=== PATIENT | female | born 1990 | race Two or more races ===

== ENCOUNTER 2016-08-07 15:38 | Outpatient (CLI) | payer MEDICAID | END 2016-08-07 15:39 | disposition home or self-care (01) | DX: Z11.3 Encounter for screening for infections with a predominantly sexual mode of transmission (principal) ==

== ENCOUNTER 2016-10-27 06:16 | Emergency (ER) | payer MEDICAID ==
[2016-10-27] MEDS ORDERED: HYDROmorphone 1 MG/ML SYRINGE IVP STA (06:33)
[2016-10-27] MEDS ORDERED: ONDANSETRON 4 MG/2 ML VIAL IVP STA (06:33)
[2016-10-27] MEDS ORDERED: SODIUM CHLORIDE 0.9% 1,000 ML IV ONE (06:33)
[2016-10-27] MEDS ORDERED: HYDROmorphone 1 MG/ML SYRINGE ONE (06:37)
[2016-10-27] MEDS ORDERED: ONDANSETRON 4 MG/2 ML VIAL ONE (06:37)
== END 2016-10-27 07:37 | disposition home or self-care (01) ==
DX: K52.9 Noninfective gastroenteritis and colitis, unspecified (principal); K21.9 Gastro-esophageal reflux disease without esophagitis; G40.909 Epilepsy, unspecified, not intractable, without status epilepticus
CPT/HCPCS: 36415; 80053; 81003; 81025; 83690; 85025; 96374; 96375; 99283; 99284; J1170

== ENCOUNTER 2016-11-19 19:33 | Outpatient (CLI) | payer MEDICAID ==
--- NOTE | 2016-11-20 14:03 | Ultrasound Report ---
ABDOMINAL ULTRASOUND COMPLETE: 11/19/2016 CLINICAL HISTORY: History of gallbladder polyp. TECHNIQUE: Real-time scanning was performed with telephone sales representative static images obtained. FINDINGS: The liver shows a mildly coarsened parenchymal pattern. This is a nonspecific finding. Thi s can be one related to cirrhosis or hepatitis. Recommend clinical correlation. No obvious masses are detected in the liver. The liver length is within normal limits measuring 14.6 cm. Normal hepatopeta l flow is seen in the portal vein. The gallbladder demonstrates a small polyp within it. This gallbladder polyp once again measures 0.55 cm. It is unchanged in size as compared to preceding exam dated 08/07/2009. This lack of change most likely indicates this is of benign etiology. No calculi are noted. No gallbladder wall thickening is seen. The common bile duct measures 4 mm. The pancreas is obscured by bowel gas and, therefore, cannot accurately comment about it. The right kidney measures 11.7 cm. There is a question of one or two small calculi in the right kidne y in association with the calices measuring a few millimeters in diameter. No right pyelocaliceal sys tem distention is seen. The left kidney measures 11 cm. No pyelocaliceal system distention or mass is noted. The spleen measures 11.6 cm. It is within normal limits. The abdominal aorta is within normal limits having diameters of 1.8 cm by 1.3 cm. The inferior vena c tom is seen in the subhepatic portion and shows no significant abnormality. IMPRESSION: 1. AN 0.55 CM POLYP IS NOTED ATTACHED TO THE POSTERIOR WALL OF THE GALLBLADDER. IT IS UNCHANGED IN SI ZE SINCE 08/07/2009 AND, THEREFORE OF BENIGN ETIOLOGY. 2. THE LIVER ONCE AGAIN SHOWS A MILDLY COARSENED PARENCHYMAL PATTERN WITHOUT ENLARGEMENT. THE FINDING IS NONSPECIFIC. IT MAY REPRESENT SUBTLE SIGN OF CIRRHOSIS OR HEPATITIS. RECOMMEND CLINICAL CORRELATI ON. 3. EQUIVOCAL FINDING IS NOTED IN REGARD TO ONE TO TWO SMALL NONOBSTRUCTING CALCULI WITHIN THE RIGHT K JOSHNEY. JOB #: [id number] EXT JOB #:[id number]
== END 2016-11-19 19:34 | disposition home or self-care (01) ==
LOC: DI 19:33
PROVIDERS: ATTEND Physician Assistant
DX: K82.4 Cholesterolosis of gallbladder (principal)
CPT/HCPCS: 76700

== ENCOUNTER 2016-11-25 13:16 | Outpatient (CLI) | payer MEDICAID ==
[2016-11-25 19:10] LABS: ALBUMIN/GLOBULIN RATIO 1.7 (1.0-2.2); BILIRUBIN,TOTAL 0.5 mg/dL (0.2-1.0); CALCIUM 8.9 mg/dL (8.5-10.3); CREATININE 0.6 mg/dL (0.4-1.0); POTASSIUM 4.1 mmol/L (3.5-5.0); TOTAL PROTEIN 7.3 g/dL (6.7-8.2)
== END 2016-11-25 13:17 | disposition home or self-care (01) ==
LOC: LAB.N 13:16
PROVIDERS: ATTEND Physician Assistant
DX: R94.5 Abnormal results of liver function studies (principal)
CPT/HCPCS: 36415; 80053; 81599; 86317; 86803

== ENCOUNTER 2016-12-03 15:52 | Emergency (ER) | payer MEDICAID ==
[2016-12-03 17:21] LABS: BILIRUBIN,URINE NEGATIVE (NEGATIVE)
[2016-12-03 17:23] LABS: HCG UR QUAL NEGATIVE
[2016-12-03 17:24] LABS: UA CHARGE (STRIP ONLY) YES; UR CULTURE IF IND NOT INDICATED
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
[2016-12-03] MEDS ORDERED: CHERRY SYRUP 10 ML UDC PO ONE (19:33)
[2016-12-03] MEDS ORDERED: HYDROcod/ACETAM 5/325 MG TABLET ONE (19:33)
[2016-12-03] MEDS ORDERED: DEXAMETHASONE 10 MG/ML VIAL ONE (19:34)
[2016-12-03] MEDS: DEXAMETHASONE 10 MG/ML VIAL PO STA (19:37)
[2016-12-03] MEDS: HYDROcod/ACETAM 5/325 MG TABLET PO STA (19:40)
[2016-12-03] MEDS ORDERED: HYDROmorphone 2 MG TABLET ONE (19:45)
[2016-12-03] MEDS: HYDROmorphone 2 MG TABLET PO STA (19:47)
--- NOTE | 2016-12-03 20:00 | CT Preliminary Report ---
Exam: CT Head W/O IMPRESSION: Focal area of encephalomalacia at the left posterior lateral frontal lobe with adjacent c raniotomy, unchanged. No acute findings. [facility] SITE ID: [id number]
--- NOTE | 2016-12-03 20:02 | CT Report ---
EXAM: CT HEAD EXAM DATE: 12/03/2016 07:43 PM. CLINICAL HISTORY: Headache for 1-2 weeks. COMPARISON: Head CT 06/04/2012. TECHNIQUE: Multiaxial CT images were obtained from the foramen magnum to the vertex. IV contrast: Non e. Reformats: Coronal. In accordance with CT protocol optimization, one or more of the following dose reduction techniques w ere utilized for this exam: automated exposure control, adjustment of mA and/or KV based on patient s ize, or use of iterative reconstructive technique. FINDINGS: Parenchyma: No intraparenchymal hemorrhage. Focal area of encephalomalacia at the left posterior late ral frontal lobe, unchanged. Adjacent left lateral craniotomy, unchanged. No evidence of mass effect, midline shift, or CT findings of infarction. Zhao-white differentiation is distinct. Extraaxial Spaces: Normal for age. No subdural or epidural collections identified. Ventricles: Normal in size and position. Sinuses: Imaged paranasal sinuses, orbits, and mastoids show no significant abnormality. Bones: No acute findings. See above. IMPRESSION: Focal area of encephalomalacia at the left posterior lateral frontal lobe with adjacent c raniotomy, unchanged. No acute findings. [facility] Referring Provider Line: [phone] SITE ID: [id number]
[2016-12-03 20:12] VITALS: BP 114/68
== END 2016-12-03 20:52 | disposition home or self-care (01) ==
LOC: ED 15:52
DX: R51 Headache (principal); G93.89 Other specified disorders of brain; K21.9 Gastro-esophageal reflux disease without esophagitis; G40.909 Epilepsy, unspecified, not intractable, without status epilepticus
CPT/HCPCS: 70450; 81003; 81025; 99283; 99284; A9270; 81001; 87086

== ENCOUNTER 2017-03-27 13:52 | Emergency (ER) | payer OTHER, MEDICAID ==
[2017-03-27] MEDS ORDERED: ONDANSETRON ODT 4 MG TABLET TL STA (14:14)
[2017-03-27] MEDS ORDERED: ONDANSETRON ODT 4 MG TABLET ONE (14:22)
[2017-03-27 14:53] LABS: BASOPHILS % (AUTO) 0.5 %; EOSINOPHILS % (AUTO) 0.5 %; HCT - HEMATOCRIT 44.1 % (37.0-47.0); LYMPHOCYTES % (AUTO) 37.6 %; MEAN CORPUSCULAR HEMOGLOBIN 31.7 pg (27.0-31.0); MEAN CORPUSCULAR HGB CONC 34.1 g/dL (32.0-36.0); MEAN PLATELET VOLUME 8.3 fL (7.9-10.8); MONOCYTES # (AUTO) 0.4 10^3/uL (0.0-1.0); MONOCYTES % (AUTO) 6.9 %; NEUTROPHILS # (AUTO) 2.8 10^3/uL (1.5-6.6); NEUTROPHILS % (AUTO) 54.5 %; RED BLOOD COUNT 4.74 10^6/uL (4.20-5.40); RED CELL DISTRIBUTION WIDTH 12.5 % (12.0-15.0); UNCORRECTED WHITE BLOOD COUNT 5.2 x10^3/uL; WHITE BLOOD COUNT 5.2 x10^3/uL (4.8-10.8)
[2017-03-27 15:00] LABS: ALBUMIN/GLOBULIN RATIO 1.5 (1.0-2.2); BILIRUBIN,TOTAL 0.8 mg/dL (0.2-1.0); BUN - BLOOD UREA NITROGEN 6 mg/dL (6-20); CALCIUM 9.1 mg/dL (8.5-10.3); CARBON DIOXIDE - CO2 25 mmol/L (21-32); CHLORIDE 104 mmol/L (101-111); CREATININE 0.7 mg/dL (0.4-1.0); GFR - MDRD 99 (>89); GLUCOSE 98 mg/dL (70-100); LIPASE 25 U/L (22-51); POTASSIUM 3.6 mmol/L (3.5-5.0); SALICYLATE < 6.0 mg/dL; SODIUM 141 mmol/L (135-145)
[2017-03-27 15:01] LABS: ACETAMINOPHEN < 10 ug/mL (10-30)
[2017-03-27 15:16] LABS: BILIRUBIN,URINE NEGATIVE (NEGATIVE); HCG UR QUAL NEGATIVE; UA CHARGE (STRIP ONLY) YES; UR CULTURE IF IND NOT INDICATED
--- NOTE | 2017-03-27 15:33 | ED Physician Documentation ---
History of Present Illness - Stated complaint Stated Complaint: LOSS OF APPETITE - Chief complaint Chief Complaint: General - History obtained from History obtained from: Patient - History of Present Illness Timing: How many weeks ago (2) Pain level max: 0 Pain level now: 0 - Additonal information Additional information: Patient is a 27-year-old female who presents to the emergency department with worsening depression for the past 2-3 weeks. States that she found out that her was cheating on her and they are now going through divorce. She has a counselor that she sees, but does not feel like it is helping. States she has had difficulty eating and has been vomiting over the past few weeks. Did go out with her friends last night and had a few drinks. States she did not feel like hanging out with her friends. Therefore she went home early. States that the vomiting is better if she just does not eat. It is worse with eating. Does have a history of depression and anxiety. Review of Systems Constitutional: denies: Fever, Chills Ears: denies: Ear pain Nose: denies: Rhinorrhea / runny nose, Congestion Throat: denies: Sore throat Cardiac: denies: Chest pain / pressure Respiratory: denies: Cough GI: reports: Nausea, Vomiting. denies: Abdominal Pain, Diarrhea : reports: Control (depo). denies: Dysuria, Now EGA Skin: denies: Rash Musculoskeletal: denies: Neck pain, Back pain Neurologic: denies: Focal weakness, Numbness Psychiatric: reports: Depressed. 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 Neuro: Other HEENT: Other - Present Medications Home Medications: Ambulatory Orders Medication Instructions Recorded Confirmed Levetiracetam [Keppra] 1,500 mg PO BID 07/07/13 07/07/13 Lorazepam [Ativan] 1 mg PO TID PRN #12 tablet 07/07/13 Levothyroxine Sodium [Synthroid] 0 mcg PO 07/30/13 07/30/13 Omeprazole 20 mg PO DAILY 03/27/17 03/27/17 Ondansetron Odt [Zofran] 4 mg TL Q6H PRN #10 tablet 03/27/17 - Allergies Allergies/Adverse Reactions: Allergies Allergy/AdvReac Type Severity Reaction Status Date / Time codeine Allergy Respiratory Verified 10/27/16 06:21 hydrocodone Allergy Rash Verified 12/03/16 19:38 oxycodone Allergy Rash Verified 12/03/16 19:38 phenytoin sodium * Allergy Rash Verified 10/27/16 06:21 [From Dilantin] phenytoin sodium extended * Allergy Rash Verified 10/27/16 06:21 [From Dilantin] - Social History Does the pt smoke?: Yes Smoking Status: Current every day smoker Does the pt drink ETOH?: Yes Does the pt have substance abuse?: No - Immunizations Immunizations are current?: No Immunizations: TDAP >10years/unknown - POLST Patient has POLST: No PD ED PE NORMAL - Vitals Vital signs reviewed: Yes - General General: Alert and oriented X 3, No acute distress, Well developed/nourished - HEENT HEENT: PERRL, Moist mucous membranes - Neck Neck: Supple, no meningeal sign - Cardiac Cardiac: RRR, Strong equal pulses - Respiratory Respiratory: No respiratory distress, Clear bilaterally - Abdomen Abdomen: Soft, Non tender, Non distended - Derm Derm: Warm and dry, No rash - Neuro Neuro: Alert and oriented X 3 - Psych Psych: Normal mood, Normal affect Results - Vitals Vitals: Vital Signs - 24 hr 03/27/17 03/27/17 13:55 15:39 Temperature 36.3 C L Heart Rate 87 68 Respiratory 16 16 Rate Blood Pressure 113/75 122/77 O2 Saturation 97 99 Oxygen O2 Source Room air - Labs Labs: Laboratory Tests 03/27/17 03/27/17 03/27/17 14:33 14:33 15:00 WBC 5.2 RBC 4.74 Hgb 15.0 Hct 44.1 MCV 93.0 MCH 31.7 H MCHC 34.1 RDW 12.5 Plt Count 201 MPV 8.3 Neut # 2.8 Lymph # 2.0 [place] # 0.4 Eos # 0.0 Baso # 0.0 Absolute Nucleated RBC 0.00 Nucleated RBC % 0.0 Sodium 141 Potassium 3.6 Chloride 104 Carbon Dioxide 25 Anion Gap 12.0 BUN 6 Creatinine 0.7 Estimated GFR (MDRD) 99 Glucose 98 Calcium 9.1 Total Bilirubin 0.8 AST 15 ALT 12 Alkaline Phosphatase 52 Total Protein 8.0 Albumin 4.8 Globulin 3.2 Albumin/Globulin Ratio 1.5 Lipase 25 Urine Color Urine Clarity Urine pH Ur Specific [place] Urine Protein Urine Glucose (UA) Urine Ketones Urine Occult Blood Urine Nitrite Urine Bilirubin Urine Urobilinogen Ur Leukocyte Esterase Ur Microscopic Review Urine Culture Comments Urine HCG, Qual Salicylates < 6.0 Urine Opiates Screen NEGATIVE Ur Oxycodone Screen NEGATIVE Urine Methadone Screen NEGATIVE Ur Propoxyphene Screen NEGATIVE Acetaminophen < 10 L Ur Barbiturates Screen NEGATIVE Ur Tricyclics Screen NEGATIVE Ur Phencyclidine Scrn NEGATIVE Ur Amphetamine Screen NEGATIVE U Methamphetamines Scrn NEGATIVE U Benzodiazepines Scrn NEGATIVE Urine Cocaine Screen NEGATIVE U Cannabinoids Screen POSITIVE H Ethyl Alcohol < 5.0 03/27/17 15:00 WBC RBC Hgb Hct MCV MCH MCHC RDW Plt Count MPV Neut # Lymph # [place] # Eos # Baso # Absolute Nucleated RBC Nucleated RBC % Sodium Potassium Chloride Carbon Dioxide Anion Gap BUN Creatinine Estimated GFR (MDRD) Glucose Calcium Total Bilirubin AST ALT Alkaline Phosphatase Total Protein Albumin Globulin Albumin/Globulin Ratio Lipase Urine Color DARK YELLOW Urine Clarity CLEAR Urine pH 6.0 Ur Specific [place] 1.025 Urine Protein NEGATIVE Urine Glucose (UA) NEGATIVE Urine Ketones NEGATIVE Urine Occult Blood NEGATIVE Urine Nitrite NEGATIVE Urine Bilirubin NEGATIVE Urine Urobilinogen 0.2 (NORMAL) Ur Leukocyte Esterase NEGATIVE Ur Microscopic Review NOT INDICATED Urine Culture Comments NOT INDICATED Urine HCG, Qual NEGATIVE Salicylates Urine Opiates Screen Ur Oxycodone Screen Urine Methadone Screen Ur Propoxyphene Screen Acetaminophen Ur Barbiturates Screen Ur Tricyclics Screen Ur Phencyclidine Scrn Ur Amphetamine Screen U Methamphetamines Scrn U Benzodiazepines Scrn Urine Cocaine Screen U Cannabinoids Screen Ethyl Alcohol PD MEDICAL DECISION MAKING - ED course Complexity details: reviewed results, re-evaluated patient, considered differential, d/w patient, d/w economic consultant ED course: Patient presents to the emergency department with vomiting for the past several weeks, accompanied by increasing life stress. Vomiting resolved with Zofran. No acute laboratory issues. Social work was consulted and evaluated the patient and she was connected with more resources for home. Does currently see a [employer] counselor as well as [facility]. She denies any suicidal ideation or homicidal ideation. No hallucinations. Patient counseled regarding signs and symptoms for which I believe and urgent re-evaluation would be necessary. Patient with good understanding of and agreement to plan and is comfortable going home at this time This document was made in part using voice recognition software. While efforts are made to proofread this document, sound alike and grammatical errors may occur. Departure - Departure Disposition: 01 Home, Self Care Clinical Impression: Vomiting Qualifiers: Vomiting type: unspecified Nausea presence: with nausea Depression Qualifiers: Depression Type: unspecified Qualified Code(s): F32.9 - Major depressive disorder, single episode, unspecified Condition: Good Instructions: ED Depression, ED Nausea Vomiting Follow-Up: AMARA GUTHRIE MD [Primary Care Provider] - Within 3 Days Prescriptions: Ondansetron Odt [Zofran] 4 mg TL Q6H PRN #10 tablet PRN Reason: Nausea / Vomiting Comments: Follow up as instructed by Elena faria. Return if you worsen. Discharge Date/Time: 03/27/17 15:39
[2017-03-27 15:43] VITALS: BP 122/77
== END 2017-03-27 15:39 | disposition home or self-care (01) ==
LOC: ED 13:52
DX: R11.2 Nausea with vomiting, unspecified (principal); F32.9 Major depressive disorder, single episode, unspecified; F17.200 Nicotine dependence, unspecified, uncomplicated
CPT/HCPCS: 36415; 80053; 80306; 80307; 80320; 80329; 81003; 81025; 83690; 85025; 99283; Q0162; 81001; 87086

== ENCOUNTER 2017-10-08 08:00 | Outpatient (CLI) | payer OTHER, MEDICAID ==
[2017-10-08 19:25] LABS: THYROID STIMULATING HORMONE 1.87 uIU/mL (0.34-5.60)
[2017-10-08 19:29] LABS: FREE T4 (FREE THYROXINE) 1.27 ng/dL (0.58-1.64)
== END 2017-10-08 08:01 | disposition home or self-care (01) ==
LOC: LAB.N 08:00
PROVIDERS: ATTEND Internal Medicine Endocrinology, Diabetes & Metabolism
DX: E89.0 Postprocedural hypothyroidism (principal)
CPT/HCPCS: 36415; 84439; 84443

== ENCOUNTER 2018-01-30 19:15 | Emergency (ER) | payer OTHER, MEDICAID ==
[2018-01-30 19:24] VITALS: BP 127/87
[2018-01-30] MEDS ORDERED: HYDROcod/ACET 5/325 Prepack 4 PO STA (19:50)
[2018-01-30] MEDS ORDERED: BACITRACIN OINT TOP STA (19:50)
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
[2018-01-30] MEDS ORDERED: traMADol 50 MG TABLET PO STA (19:53)
[2018-01-30] MEDS ORDERED: TETANUS/DIPHTHERIA/PERTUSSIS 0.5 ML SYRINGE IM ONE (19:57)
== END 2018-01-30 20:27 | disposition home or self-care (01) ==
LOC: ED 19:15
DX: T24.202A Burn of second degree of unspecified site of left lower limb, except ankle and foot, initial encounter (principal); T31.0 Burns involving less than 10% of body surface; F17.200 Nicotine dependence, unspecified, uncomplicated; R03.0 Elevated blood-pressure reading, without diagnosis of hypertension; X13.1XXA Other contact with steam and other hot vapors, initial encounter; Y93.E4 Activity, ironing; Y92.009 Unspecified place in unspecified non-institutional (private) residence as the place of occurrence of the external cause
CPT/HCPCS: 16020; 90471; 90715; 99281; 99283; A9270

== ENCOUNTER 2018-02-11 10:21 | Outpatient (CLI) | payer OTHER, MEDICAID ==
[2018-02-11 12:49] LABS: BASOPHILS % (AUTO) 0.2 %; EOSINOPHILS # (AUTO) 0.1 10^3/uL (0.0-0.7); EOSINOPHILS % (AUTO) 1.2 %; LYMPHOCYTES # (AUTO) 1.7 10^3/uL (1.5-3.5); LYMPHOCYTES % (AUTO) 31.8 %; MEAN CORPUSCULAR HEMOGLOBIN 32.4 pg (27.0-31.0); MEAN CORPUSCULAR HGB CONC 34.4 g/dL (32.0-36.0); MEAN PLATELET VOLUME 8.7 fL (7.9-10.8); MONOCYTES # (AUTO) 0.4 10^3/uL (0.0-1.0); MONOCYTES % (AUTO) 7.1 %; NEUTROPHILS # (AUTO) 3.1 10^3/uL (1.5-6.6); NEUTROPHILS % (AUTO) 59.7 %; PLT - PLATELET COUNT 193 10^3/uL (130-450); RED BLOOD COUNT 4.31 10^6/uL (4.20-5.40); RED CELL DISTRIBUTION WIDTH 12.4 % (12.0-15.0); WHITE BLOOD COUNT 5.3 x10^3/uL (4.8-10.8)
[2018-02-11 12:58] LABS: ALBUMIN 4.8 g/dL (3.2-5.5); ALBUMIN/GLOBULIN RATIO 1.5 (1.0-2.2); ALKALINE PHOSPHATASE 46 IU/L (42-121); ALT ALANINE AMINOTRANSFERASE 12 IU/L (10-60); AST ASPARTATE AMINOTRANSFERASE 16 IU/L (10-42); BILIRUBIN,TOTAL 0.5 mg/dL (0.2-1.0); BUN - BLOOD UREA NITROGEN 12 mg/dL (6-20); CALCIUM 8.7 mg/dL (8.5-10.3); CARBON DIOXIDE - CO2 25 mmol/L (21-32); CHLORIDE 105 mmol/L (101-111); CHOL/HDL RATIO 3.9 (<4.4); CHOLESTEROL 185 mg/dL; CREATININE 0.7 mg/dL (0.4-1.0); GFR - MDRD 99 (>89); GLUCOSE 89 mg/dL (70-100); HDL CHOLESTEROL 48 mg/dL; LDL CHOLESTEROL,CALCULATED 118 mg/dL; LDL/HDL RATIO 2.5 (<4.4); SODIUM 137 mmol/L (135-145); TOTAL PROTEIN 7.9 g/dL (6.7-8.2); VLDL CHOLESTEROL 19 mg/dL
[2018-02-11 13:02] LABS: HB2 TOTAL 14.8 g/dL; HEMOGLOBIN A1C 0.42 g/dL; HEMOGLOBIN A1C % 4.7 % (4.6-6.2)
== END 2018-02-11 10:22 | disposition home or self-care (01) ==
LOC: LAB.N 10:21
PROVIDERS: ATTEND Nurse Practitioner
DX: E11.9 Type 2 diabetes mellitus without complications (principal)
CPT/HCPCS: 36415; 80053; 80061; 82043; 83036; 83721; 84443; 85025

== ENCOUNTER 2018-02-11 11:53 | Outpatient (CLI) | payer OTHER, MEDICAID ==
--- NOTE | 2018-02-11 13:09 | XRAY Report ---
Procedure Date: 02/11/2018 Accession Number: [id number] / [id number] Procedure: XRN - Cervical Spine 2 View CPT Code: FULL RESULT: EXAM: CERVICAL SPINE RADIOGRAPHY EXAM DATE: 02/11/2018 12:25 PM. CLINICAL HISTORY: Pain. COMPARISONS: None. TECHNIQUE: 3 views. FINDINGS: Alignment: Normal. No spondylolisthesis or scoliosis. Bones: The cervical vertebral bodies and posterior elements are well visualized from the skull base through C7-T1. No fractures or bone lesions. Disks: Normal. Disk heights are maintained. Facets: No degenerative disease. Soft Tissues: Surgical clips are seen projecting over the left neck. No prevertebral soft tissue swelling. The visualized lung apices are clear. IMPRESSION: Normal cervical spine radiography. [facility]
== END 2018-02-11 11:54 | disposition home or self-care (01) ==
LOC: DI.N 11:53
PROVIDERS: ATTEND Nurse Practitioner
DX: M54.2 Cervicalgia (principal); E11.9 Type 2 diabetes mellitus without complications
CPT/HCPCS: 36415; 72040; 80053; 80061; 82043; 83036; 83721; 84443; 85025

== ENCOUNTER 2018-04-18 14:23 | Outpatient (CLI) | payer OTHER, MEDICAID | END 2018-04-18 14:24 | disposition home or self-care (01) | LOC: LAB.N 14:23 | PROVIDERS: ATTEND Nurse Practitioner | DX: E03.9 Hypothyroidism, unspecified (principal) | CPT/HCPCS: 36415; 84443 ==

== ENCOUNTER 2018-05-13 16:06 | Outpatient (CLI) | payer OTHER, MEDICAID ==
--- NOTE | 2018-05-13 16:48 | XRAY Report ---
Reason: HEBERDENS NODES W/ARTHROPATHY,RT Procedure Date: 05/13/2018 Accession Number: [id number] / [id number] Procedure: XRN - Finger(s) RT CPT Code: FULL RESULT: EXAM: RIGHT THIRD DIGIT RADIOGRAPHY EXAM DATE: 05/13/2018 04:19 PM. CLINICAL HISTORY: Right finger pain. COMPARISON: None. TECHNIQUE: 3 views. FINDINGS: Bones: Normal. No fracture or bone lesion. Joints: Normal. No subluxations. Soft Tissues: Normal. No soft tissue swelling. IMPRESSION: Normal digit radiography. No degenerative changes identified. [facility]
== END 2018-05-13 16:07 | disposition home or self-care (01) ==
LOC: DI.N 16:06
PROVIDERS: ATTEND Nurse Practitioner
DX: M15.1 Heberden's nodes (with arthropathy) (principal)
CPT/HCPCS: 73140

== ENCOUNTER 2018-07-08 08:00 | Outpatient (CLI) | payer OTHER, MEDICAID | END 2018-07-08 23:59 | disposition home or self-care (01) | LOC: LAB.N 08:00 | PROVIDERS: ATTEND Nurse Practitioner | DX: E03.9 Hypothyroidism, unspecified (principal) | CPT/HCPCS: 36415; 84443 ==

== ENCOUNTER 2018-08-23 15:56 | Outpatient (CLI) | payer OTHER, MEDICAID | END 2018-08-23 15:57 | disposition home or self-care (01) | LOC: SC 15:56 | PROVIDERS: ATTEND Nurse Practitioner Family | DX: R06.81 Apnea, not elsewhere classified (principal); G47.10 Hypersomnia, unspecified; R06.83 Snoring; R41.89 Other symptoms and signs involving cognitive functions and awareness; G47.8 Other sleep disorders; E66.9 Obesity, unspecified; Z68.29 Body mass index [BMI] 29.0-29.9, adult; F17.210 Nicotine dependence, cigarettes, uncomplicated | CPT/HCPCS: 99204; 99212 ==

== ENCOUNTER 2018-09-19 22:00 | Emergency (ER) | payer OTHER, MEDICAID ==
[2018-09-19] MEDS ORDERED: AMOX/CLAV 875 MG/125 MG TABLET PO STA (23:06)
[2018-09-19] MEDS ORDERED: DEXAMETHASONE 10 MG/ML VIAL PO STA (23:06)
--- NOTE | 2018-09-19 23:08 | ED Physician Documentation ---
PD HPI HEENT - Stated complaint Stated Complaint: THROAT PAIN/BODY ACHE - Chief complaint Chief Complaint: Heent - History obtained from History obtained from: Patient - History of Present Illness Timing - onset: Other (She is been sick for 5 days with cough that is mild, more significant congestion and sinus pain associated with chills and sweats and sore throat. She also feels like her ears are itching.) Review of Systems Constitutional: reports: Chills, Sweats. denies: Fever Nose: reports: Rhinorrhea / runny nose, Congestion, Sinus pressure / pain Throat: reports: Sore throat. 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 01/30/18 Tramadol HCl 50 mg PO Q6H PRN #10 tablet 01/30/18 Amox/Clav 875/125 [Augmentin] 1 each PO Q12H #20 tablet 09/19/18 Guaifenesin/Pseudoephedrne HCl 1 each PO BID PRN #20 tab.er.12h 09/19/18 [Mucinex D ER 600-60 mg Tablet] Mometasone Furoate [Nasonex] 1 spray NS BID #1 spray.pump 09/19/18 - Allergies Allergies/Adverse Reactions: Allergies Allergy/AdvReac Type Severity Reaction Status Date / Time codeine Allergy Respiratory Verified 09/19/18 22:29 hydrocodone Allergy Rash Verified 09/19/18 22:29 oxycodone Allergy Rash Verified 09/19/18 22:29 phenytoin sodium * Allergy Rash Verified 09/19/18 22:29 [From Dilantin] phenytoin sodium extended * Allergy Rash Verified 09/19/18 22:29 [From Dilantin] - Social History Does the pt smoke?: Yes Smoking Status: Current every day smoker Does the pt drink ETOH?: Yes Does the pt have substance abuse?: No - Immunizations Immunizations are current?: No Immunizations: TDAP >10years/unknown - POLST Patient has POLST: No PD ED PE NORMAL - Vitals Vital signs reviewed: Yes - General General: Alert and oriented X 3, No acute distress - HEENT HEENT: Ears normal, Pharynx benign, Other (Tender over both maxillary sinuses, supple neck, no cervical adenopathy.) - Respiratory Respiratory: No respiratory distress, Clear bilaterally - Abdomen Abdomen: Non tender - Neuro Neuro: Alert and oriented X 3, Normal speech - Psych Psych: Normal mood, Normal affect Results - Vitals Vitals: Vital Signs - 24 hr 09/19/18 22:23 Temperature 37.2 C Heart Rate 77 Respiratory 17 Rate Blood Pressure 113/77 O2 Saturation 99 Oxygen O2 Source Room air - Labs Labs: Laboratory Tests 09/19/18 22:30 Group A Strep Rapid Negative PD MEDICAL DECISION MAKING - ED course ED course: This is a 28-year-old with viral syndrome with concomitant sinusitis, the time course would suggest that an antibiotic trial per IDSA guidelines might be helpful. Departure - Departure Disposition: 01 Home, Self Care Clinical Impression: Sinusitis Qualifiers: Sinusitis location: maxillary Chronicity: acute Recurrence: non-recurrent Qualified Code(s): J01.00 - Acute maxillary sinusitis, unspecified Condition: Good Record reviewed to determine appropriate education?: Yes Instructions: ED Sinusitis Abx Tx Prescriptions: Amox/Clav 875/125 [Augmentin] 1 each PO Q12H #20 tablet Guaifenesin/Pseudoephedrne HCl [Mucinex D ER 600-60 mg Tablet] 1 each PO BID PRN #20 tab.er.12h PRN Reason: congestion Mometasone Furoate [Nasonex] 1 spray NS BID #1 spray.pump Comments: Call your doctor to arrange a follow-up appointment, make the next available appointment. In the interim, return anytime if worse or if new symptoms dev elop.
[2018-09-19] MEDS ORDERED: CHERRY SYRUP 10 ML UDC PO ONE (23:18)
[2018-09-19 23:19] VITALS: BP 119/88
== END 2018-09-19 23:21 | disposition home or self-care (01) ==
LOC: ED 22:00
DX: J01.00 Acute maxillary sinusitis, unspecified (principal); B34.9 Viral infection, unspecified; F17.200 Nicotine dependence, unspecified, uncomplicated
CPT/HCPCS: 87070; 87430; 99283; A9270

== ENCOUNTER 2018-09-24 20:26 | Outpatient (CLI) | payer OTHER, MEDICAID | END 2018-09-24 20:27 | disposition home or self-care (01) | LOC: SC 20:26 | PROVIDERS: ATTEND Internal Medicine Pulmonary Disease | DX: R06.83 Snoring (principal); G47.10 Hypersomnia, unspecified | CPT/HCPCS: 95810 ==

== ENCOUNTER 2018-10-15 15:21 | Emergency (ER) | payer OTHER, MEDICAID ==
[2018-10-15 15:27] VITALS: BP 144/89
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
[2018-10-15] MEDS ORDERED: LIDOCAINE OINTMENT 5% 35.44 GM TUBE TOP STA (15:50)
[2018-10-15] MEDS ORDERED: IBUPROFEN 600 MG TABLET PO STA (15:51)
[2018-10-15] MEDS ORDERED: ACETAMINOPHEN 325 MG TABLET PO STA (15:51)
== END 2018-10-15 16:22 | disposition home or self-care (01) ==
LOC: ED 15:21
DX: T23.241A Burn of second degree of multiple right fingers (nail), including thumb, initial encounter (principal); T23.201A Burn of second degree of right hand, unspecified site, initial encounter; T31.0 Burns involving less than 10% of body surface; X10.2XXA Contact with fats and cooking oils, initial encounter; Y93.G3 Activity, cooking and baking; Y92.009 Unspecified place in unspecified non-institutional (private) residence as the place of occurrence of the external cause
CPT/HCPCS: 99282; A9270

== ENCOUNTER 2018-11-04 15:35 | Outpatient (CLI) | payer MEDICAID ==
[2018-11-04 16:52] LABS: CHOL/HDL RATIO 3.8 (<4.4); CHOLESTEROL 152 mg/dL; HDL CHOLESTEROL 40 mg/dL; LDL CHOLESTEROL,CALCULATED 83 mg/dL; LDL/HDL RATIO 2.1 (<4.4); VLDL CHOLESTEROL 29 mg/dL
[2018-11-04 17:02] LABS: T4 (THYROXINE) 11.69 ug/dL (6.09-12.23)
[2018-11-04 17:06] LABS: THYROID STIMULATING HORMONE < 0.08 uIU/mL (0.34-5.60)
[2018-11-05 08:02] LABS: HEPATITIS B SURFACE ANTIGEN NON-REACTIVE (NON-REACTIVE)
[2018-11-07 16:56] LABS: HIV AG/AB 4TH GEN NON-REACTIVE (NON-REACTIVE)
== END 2018-11-04 15:36 | disposition home or self-care (01) ==
LOC: LAB 15:35
PROVIDERS: ATTEND Obstetrics & Gynecology
DX: C73 Malignant neoplasm of thyroid gland (principal); Z13.220 Encounter for screening for lipoid disorders; Z11.3 Encounter for screening for infections with a predominantly sexual mode of transmission
CPT/HCPCS: 36415; 80061; 81599; 83721; 84436; 84443; 86592; 87340; 87389

== ENCOUNTER 2018-11-08 13:39 | Outpatient (CLI) | payer OTHER, MEDICAID | END 2018-11-08 13:40 | disposition home or self-care (01) | LOC: SC 13:39 | PROVIDERS: ATTEND Nurse Practitioner Family | DX: R06.83 Snoring (principal); G47.00 Insomnia, unspecified; R09.89 Other specified symptoms and signs involving the circulatory and respiratory systems | CPT/HCPCS: 99212; 99214 ==

== ENCOUNTER 2019-03-09 09:34 | Outpatient (CLI) | payer MEDICAID ==
[2019-03-09 12:27] LABS: BASOPHILS % (AUTO) 0.5 %; EOSINOPHILS # (AUTO) 0.1 10^3/uL (0.0-0.7); EOSINOPHILS % (AUTO) 1.2 %; HGB - HEMOGLOBIN 13.8 g/dL (12.0-16.0); LYMPHOCYTES # (AUTO) 2.5 10^3/uL (1.5-3.5); LYMPHOCYTES % (AUTO) 42.2 %; MEAN CORPUSCULAR HGB CONC 33.7 g/dL (32.0-36.0); MEAN CORPUSCULAR VOLUME 91.9 fL (81.0-99.0); MEAN PLATELET VOLUME 10.4 fL (7.9-10.8); MONOCYTES # (AUTO) 0.5 10^3/uL (0.0-1.0); MONOCYTES % (AUTO) 7.8 %; NEUTROPHILS # (AUTO) 2.9 10^3/uL (1.5-6.6); PLT - PLATELET COUNT 220 10^3/uL (130-450); RED BLOOD COUNT 4.45 10^6/uL (4.20-5.40); RED CELL DISTRIBUTION WIDTH 12.5 % (12.0-15.0)
[2019-03-09 12:39] LABS: ALBUMIN 4.3 g/dL (3.2-5.5); ALBUMIN/GLOBULIN RATIO 1.3 (1.0-2.2); ALKALINE PHOSPHATASE 73 IU/L (42-121); ALT ALANINE AMINOTRANSFERASE 21 IU/L (10-60); AST ASPARTATE AMINOTRANSFERASE 17 IU/L (10-42); BILIRUBIN,TOTAL 0.6 mg/dL (0.2-1.0); BUN - BLOOD UREA NITROGEN 8 mg/dL (6-20); CALCIUM 8.5 mg/dL (8.5-10.3); CARBON DIOXIDE - CO2 25 mmol/L (21-32); CHLORIDE 103 mmol/L (101-111); CHOL/HDL RATIO 4.2 (<4.4); CHOLESTEROL 174 mg/dL; CREATININE 0.6 mg/dL (0.4-1.0); GFR - MDRD 117 (>89); GLUCOSE 97 mg/dL (70-100); HDL CHOLESTEROL 41 mg/dL; LDL CHOLESTEROL,CALCULATED 98 mg/dL; LDL/HDL RATIO 2.4 (<4.4); SODIUM 136 mmol/L (135-145); TOTAL PROTEIN 7.5 g/dL (6.7-8.2); VLDL CHOLESTEROL 35 mg/dL
== END 2019-03-09 23:59 | disposition home or self-care (01) ==
LOC: LAB.N 09:34
PROVIDERS: ATTEND Nurse Practitioner Gerontology
DX: E03.9 Hypothyroidism, unspecified (principal); C73 Malignant neoplasm of thyroid gland; E53.8 Deficiency of other specified B group vitamins; Z13.9 Encounter for screening, unspecified
CPT/HCPCS: 36415; 80053; 80061; 82607; 83721; 84443; 85025

== ENCOUNTER 2019-05-05 09:11 | Outpatient (CLI) | payer MEDICAID | END 2019-05-05 23:59 | disposition home or self-care (01) | LOC: LAB.N 09:11 | PROVIDERS: ATTEND Nurse Practitioner Gerontology | DX: R25.2 Cramp and spasm (principal) | CPT/HCPCS: 36415; 83735 ==

== ENCOUNTER 2019-06-09 10:43 | Outpatient (CLI) | payer MEDICAID ==
--- NOTE | 2019-06-09 16:36 | XRAY Report ---
Reason: CHRONIC COUGH Procedure Date: 06/09/2019 Accession Number: [id number] / [id number] Procedure: XRN - Chest 2 View X-Ray CPT Code: 29248 Final Report FULL RESULT: EXAM: CHEST RADIOGRAPHY EXAM DATE: 06/09/2019 10:58 AM. CLINICAL HISTORY: CHRONIC COUGH. COMPARISON: XR CHEST PA AND LAT 12/05/2010 12:35 PM. TECHNIQUE: 2 views. FINDINGS: Lungs/Pleura: No focal opacities evident. No pleural effusion. No pneumothorax. Normal volumes. Mediastinum: Heart and mediastinal contours are unremarkable. Other: None. IMPRESSION: Normal 2-view chest radiography. RADIA
== END 2019-06-09 10:44 | disposition home or self-care (01) ==
LOC: DI.N 10:43
PROVIDERS: ATTEND Nurse Practitioner Gerontology
DX: R05 Cough (principal)
CPT/HCPCS: 71046

== ENCOUNTER 2019-09-25 08:00 | Outpatient (CLI) | payer MEDICAID ==
[2019-09-25 17:49] LABS: THYROID STIMULATING HORMONE 1.01 uIU/mL (0.34-5.60)
[2019-09-25 17:51] LABS: FREE T4 (FREE THYROXINE) 1.29 ng/dL (0.58-1.64)
== END 2019-09-25 23:59 | disposition home or self-care (01) ==
LOC: LAB.N 08:00
PROVIDERS: ATTEND Internal Medicine
DX: E89.0 Postprocedural hypothyroidism (principal); C73 Malignant neoplasm of thyroid gland; E53.8 Deficiency of other specified B group vitamins; E55.9 Vitamin D deficiency, unspecified; G40.109 Localization-related (focal) (partial) symptomatic epilepsy and epileptic syndromes with simple partial seizures, not intractable, without status epilepticus
CPT/HCPCS: 36415; 80177; 82306; 82607; 84432; 84439; 84443; 86800

== ENCOUNTER 2019-10-02 13:36 | Outpatient (CLI) | payer MEDICAID ==
[2019-10-02 14:02] LABS: CREATININE 0.8 mg/dL (0.4-1.0)
== END 2019-10-02 13:37 | disposition home or self-care (01) ==
LOC: LAB 13:36
PROVIDERS: ATTEND Internal Medicine
DX: R35.8 Other polyuria (principal)
CPT/HCPCS: 36415; 80048; 83930; 83935

== ENCOUNTER 2020-01-01 13:30 | Outpatient (CLI) | payer MEDICAID ==
[2020-01-01 14:39] LABS: CALCIUM 8.6 mg/dL (8.5-10.3); CREATININE 0.7 mg/dL (0.4-1.0)
== END 2020-01-01 13:31 | disposition home or self-care (01) ==
LOC: LAB 13:30
PROVIDERS: ATTEND Internal Medicine
DX: E87.1 Hypo-osmolality and hyponatremia (principal)
CPT/HCPCS: 36415; 80048; 82024; 82533; 83930; 83935; 84300

== ENCOUNTER 2020-01-22 15:01 | Outpatient (CLI) | payer MEDICAID ==
[2020-01-22 15:51] LABS: CHOL/HDL RATIO 4.4 (<4.4); CHOLESTEROL 186 mg/dL; HDL CHOLESTEROL 42 mg/dL; LDL CHOLESTEROL,CALCULATED 118 mg/dL; LDL/HDL RATIO 2.8 (<4.4); VLDL CHOLESTEROL 26 mg/dL
== END 2020-01-22 15:02 | disposition home or self-care (01) ==
LOC: LAB 15:01
PROVIDERS: ATTEND Internal Medicine Cardiovascular Disease
DX: Z00.00 Encounter for general adult medical examination without abnormal findings (principal)
CPT/HCPCS: 36415; 80061; 83721

== ENCOUNTER 2020-02-26 07:00 | Outpatient (CLI) | payer MEDICAID ==
[2020-02-26 20:41] LABS: CANDIDA GROUP DNA NEGATIVE (NEGATIVE); CANDIDA KRUSEI DNA NEGATIVE (NEGATIVE); TRICHOMONAS VAGINALIS DNA NEGATIVE (NEGATIVE)
[2020-02-26 21:35] LABS: TRICHOMONAS VAGINALIS DNA NEGATIVE (NEGATIVE)
== END 2020-02-26 23:59 | disposition home or self-care (01) ==
LOC: LAB.R 07:00
PROVIDERS: ATTEND Obstetrics & Gynecology
DX: R10.2 Pelvic and perineal pain (principal); R39.15 Urgency of urination; R35.0 Frequency of micturition
CPT/HCPCS: 81599; 87491; 87591; 87661; 87801

== ENCOUNTER 2020-03-14 07:44 | Outpatient (CLI) | payer MEDICAID ==
[2020-03-14 08:22] LABS: GLUCOSE, URINE (UA) NEGATIVE (NEGATIVE); KETONES,URINE (UA) TRACE mg/dL (NEGATIVE); LEUKOCYTE ESTERASE, URINE SMALL (NEGATIVE); NITRITE,URINE NEGATIVE (NEGATIVE); OCCULT BLOOD,URINE NEGATIVE (NEGATIVE); PROTEIN,URINE NEGATIVE (NEGATIVE); UROBILINOGEN,URINE 1 (NORMAL) E.U./dL (NORMAL)
[2020-03-14 08:37] LABS: BILIRUBIN,URINE NEGATIVE (NEGATIVE); CLARITY,URINE SL. CLOUDY (CLEAR); ICTOTEST,URINE NEGATIVE
[2020-03-14 08:39] LABS: BACTERIA,URINE Moderate /HPF (None Seen); SQUAMOUS EPITHELIAL CELL,UR MANY Squamous (<= Few)
[2020-03-14 08:48] LABS: FOLATE 6.02 ng/mL (5.90 - >24.8)
[2020-03-14 12:08] LABS: HEMOGLOBIN A1c% 5.1 % (4.27-6.07)
== END 2020-03-14 07:45 | disposition home or self-care (01) ==
LOC: LAB 07:44
PROVIDERS: ATTEND Obstetrics & Gynecology
DX: R35.0 Frequency of micturition (principal); E53.8 Deficiency of other specified B group vitamins; Z51.81 Encounter for therapeutic drug level monitoring; Z78.9 Other specified health status; Z79.899 Other long term (current) drug therapy
CPT/HCPCS: 36415; 81001; 82607; 82746; 82951; 83036

== ENCOUNTER 2020-06-12 15:40 | Outpatient (CLI) | payer MEDICAID | END 2020-06-12 15:41 | disposition home or self-care (01) | LOC: LAB.WCP 15:40 | PROVIDERS: ATTEND Psychiatry & Neurology Neurology | DX: G40.109 Localization-related (focal) (partial) symptomatic epilepsy and epileptic syndromes with simple partial seizures, not intractable, without status epilepticus (principal) | CPT/HCPCS: 36415; 80177 ==

== ENCOUNTER 2020-10-19 17:38 | Emergency (ER) | payer MEDICAID ==
--- OUTSIDE RECORDS SUMMARY | 2020-10-19 18:08 | EXTERNAL MEDICAL SUMMARY RPT | Continuity of Care Document ---
:1990 Demographics Phone Unavailable Preferred Language Unknown Marital Status Unknown Pentecostalism Affiliation Unknown Race Unknown Ethnic Group Unknown Author Organization [facility] Address [address] [phone] Phone Social History date description facility [id number]
--- NOTE | 2020-10-19 18:09 | XRAY Report ---
PROCEDURE: Chest 1 View X-Ray INDICATIONS: Chest pain TECHNIQUE: One view of the chest was acquired. COMPARISON: 02/04/2020 FINDINGS: Surgical changes and devices: None. Lungs and pleura: No pleural effusions or pneumothorax. Lungs are clear. Mediastinum: Mediastinal contours appear normal. Heart size is normal. Bones and chest wall: No suspicious bony lesions. Overlying soft tissues appear unremarkable. IMPRESSION: Normal portable chest. Reviewed by: Jonas Weir MD on 10/19/2020 5:08 PM AKDT Approved by: Jonas Weir MD on 10/19/2020 5:08 PM AKENEDINA Station ID: [id number]
[2020-10-19 18:30] LABS: BASOPHILS % (AUTO) 0.4 %; EOSINOPHILS # (AUTO) 0.1 10^3/uL (0.0-0.7); EOSINOPHILS % (AUTO) 1.6 %; HCT - HEMATOCRIT 44.6 % (37.0-47.0); LYMPHOCYTES # (AUTO) 2.6 10^3/uL (1.5-3.5); LYMPHOCYTES % (AUTO) 31.9 %; MEAN CORPUSCULAR HEMOGLOBIN 30.7 pg (27.0-31.0); MEAN CORPUSCULAR HGB CONC 33.6 g/dL (32.0-36.0); MEAN CORPUSCULAR VOLUME 91.4 fL (81.0-99.0); MEAN PLATELET VOLUME 9.4 fL (7.9-10.8); MONOCYTES # (AUTO) 0.7 10^3/uL (0.0-1.0); MONOCYTES % (AUTO) 8.6 %; NEUTROPHILS # (AUTO) 4.7 10^3/uL (1.5-6.6); NEUTROPHILS % (AUTO) 57.3 %; PLT - PLATELET COUNT 270 10^3/uL (130-450); RED BLOOD COUNT 4.88 10^6/uL (4.20-5.40); RED CELL DISTRIBUTION WIDTH 12.9 % (12.0-15.0); WHITE BLOOD COUNT 8.3 x10^3/uL (4.8-10.8)
[2020-10-19 18:44] LABS: ALBUMIN 4.7 g/dL (3.2-5.5); ALBUMIN/GLOBULIN RATIO 1.3 (1.0-2.2); BILIRUBIN,TOTAL 0.6 mg/dL (0.2-1.0); CALCIUM 9.1 mg/dL (8.5-10.3); CREATININE 0.7 mg/dL (0.4-1.0); POTASSIUM 4.4 mmol/L (3.5-5.0); TOTAL PROTEIN 8.2 g/dL (6.7-8.2)
[2020-10-19 19:15] VITALS: BP 123/89
--- NOTE | 2020-10-19 19:15 | ED Physician Documentation ---
PD HPI DYSPNEA - Stated complaint Stated Complaint: SOA/VOMIT - Chief complaint Chief Complaint: Resp - History obtained from History obtained from: Patient - Additional information Additional information: 30-year-old woman with history of thyroid cancer, brain tumor removal, GERD, PTSD. For the last year she has had episodic dyspnea. Reliably it is always when she wakes up from sleep. Usually it is quite brief but today it lasted for 4 minutes and was very anxiety provoking. Now she feels back to normal. She is on Depo-Provera for control, no estrogens. Denies pedal edema or calf pa in. No recent travel. No history of DVT or PE. No heart problems other than may be some PVCs or something else that her gas plant technician told her was nothing to worry about and that she would grow out of. 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 : None HEENT: None Psych: Depression, Anxiety Musculoskeletal: None Derm: None - Past Surgical History Past Surgical History: Yes /PIPE CREW FOREMAN: section Neuro: Other HEENT: Other - Present Medications Home Medications: Ambulatory Orders Medication Instructions Recorded Confirmed Levetiracetam [Keppra] 500 mg PO BID 07/07/13 06/04/20 Lorazepam [Ativan] 1 mg PO TID PRN #12 tablet 07/07/13 06/04/20 Levothyroxine Sodium [Synthroid] 125 mcg PO Q2D 07/30/13 06/04/20 Omeprazole 20 mg PO DAILY 03/27/17 06/04/20 Mometasone Furoate [Nasonex] 1 spray NS BID #1 spray.pump 09/19/18 06/04/20 Cholecalciferol [Vitamin D3] 25 mcg PO DAILY 06/04/20 06/04/20 Escitalopram Oxalate [Lexapro] 10 mg PO DAILY 06/04/20 06/04/20 Levothyroxine Sodium 137 mcg PO Q2D 06/04/20 06/04/20 Propranolol [Inderal] 80 mg PO QPM 06/04/20 06/04/20 metFORMIN [Glucophage] 500 mg PO ONCE 06/04/20 06/04/20 - Allergies Allergies/Adverse Reactions: Allergies Allergy/AdvReac Type Severity Reaction Status Date / Time codeine Allergy Respiratory Verified 10/19/20 17:48 hydrocodone Allergy Rash Verified 10/19/20 17:48 oxycodone Allergy Rash Verified 10/19/20 17:48 phenytoin sodium * Allergy Rash Verified 10/19/20 17:48 [From Dilantin] phenytoin sodium extended * Allergy Rash Verified 10/19/20 17:48 [From Dilantin] - Social History Does the pt smoke?: Yes Smoking Status: Current every day smoker Does the pt drink ETOH?: Yes Does the pt have substance abuse?: No - Immunizations Immunizations are current?: No Immunizations: TDAP >10years/unknown - POLST Patient has POLST: No PD ED PE NORMAL - Vitals Vital signs reviewed: Yes - General General: Alert and oriented X 3, No acute distress - HEENT HEENT: PERRL, EOMI - Neck Neck: Supple, no meningeal sign, No bony TTP - Cardiac Cardiac: RRR, No murmur - Respiratory Respiratory: No respiratory distress, Clear bilaterally - Abdomen Abdomen: Normal bowel sounds, Soft, Non tender - Back Back: No CVA TTP, No spinal TTP - Derm Derm: Normal color, Warm and dry - Extremities Extremities: No edema, No calf tenderness / cord - Neuro Neuro: Alert and oriented X 3, Normal speech Results - Vitals Vitals: Vital Signs - 24 hr 10/19/20 10/19/20 17:44 19:15 Temperature 36.5 C Heart Rate 82 73 Respiratory 16 22 Rate Blood Pressure 141/89 H 123/89 H O2 Saturation 99 96 Oxygen O2 Source Room air - EKG (time done) 1752 Rate: Rate (enter#) (82) Rhythm: NSR [place]: Normal Intervals: Normal [place] QRS: Normal Ischemia: Normal ST segments - Labs Labs: Laboratory Tests 10/19/20 10/19/20 10/19/20 18:25 18:25 18:25 WBC 8.3 RBC 4.88 Hgb 15.0 Hct 44.6 MCV 91.4 MCH 30.7 MCHC 33.6 RDW 12.9 Plt Count 270 MPV 9.4 Neut # (Auto) 4.7 Lymph # (Auto) 2.6 [place] # (Auto) 0.7 Eos # (Auto) 0.1 Baso # (Auto) 0.0 Absolute Nucleated RBC 0.00 Nucleated RBC % 0.0 Sodium 139 Potassium 4.4 Chloride 106 Carbon Dioxide 23 Anion Gap 10.0 BUN 12 Creatinine 0.7 Estimated GFR (MDRD) 97 Glucose 91 Calcium 9.1 Total Bilirubin 0.6 AST 21 ALT 40 Alkaline Phosphatase 80 Troponin I High Sens < 2.3 L Total Protein 8.2 Albumin 4.7 Globulin 3.5 Albumin/Globulin Ratio 1.3 Lipase 28 PD MEDICAL DECISION MAKING - ED course ED course: This is a 30-year-old woman with episodic dyspnea that reliably happens when she wakes up from sleep with an episode today that was much worse than normal. Given that pattern the differential diagnosis I think includes GERD, obstructive sleep apnea, anxiety. Hard to differentiate among them. There is nothing in the history or physical to suggest active heart or lung issue. I recommended to start that she double her Nexium to twice a day pending follow- up with her physician, may need repeat work-up for sleep apnea and/or consideration for further anxiety evaluation. Departure - Departure Disposition: Home, Self Care Clinical Impression: Dyspnea Qualifiers: Dyspnea type: other forms of dyspnea Qualified Code(s): R06.09 - Other forms of dyspnea Condition: Good Record reviewed to determine appropriate education?: Yes Instructions: ED Dyspnea Shortness of Breath Comments: Double your Nexium, take it twice a day pending follow-up with your primary care physician. Return for new or worsening symptoms. As discussed I think the testing we did today rules out a serious cause, but return if worsening.
== END 2020-10-19 19:48 | disposition home or self-care (01) ==
LOC: ED 17:38
DX: R06.09 Other forms of dyspnea (principal); G47.33 Obstructive sleep apnea (adult) (pediatric); F41.9 Anxiety disorder, unspecified; E11.9 Type 2 diabetes mellitus without complications; Z79.84 Long term (current) use of oral hypoglycemic drugs; F17.200 Nicotine dependence, unspecified, uncomplicated; K21.9 Gastro-esophageal reflux disease without esophagitis
CPT/HCPCS: 36415; 80053; 83690; 84484; 85025; 93005; 99284

== ENCOUNTER 2021-01-01 14:10 | Outpatient (CLI) | payer MEDICAID ==
[2021-01-01 14:57] LABS: THYROID STIMULATING HORMONE < 0.08 uIU/mL (0.34-5.60)
== END 2021-01-01 14:11 | disposition home or self-care (01) ==
LOC: LAB 14:10
PROVIDERS: ATTEND Internal Medicine Endocrinology, Diabetes & Metabolism
DX: E89.0 Postprocedural hypothyroidism (principal); C73 Malignant neoplasm of thyroid gland; E56.9 Vitamin deficiency, unspecified
CPT/HCPCS: 36415; 81599; 82306; 82607; 84432; 84443; 86800

== ENCOUNTER 2021-01-10 14:38 | Outpatient (CLI) | payer MEDICAID ==
[2021-01-14 01:27] LABS: THYROID PEROXIDASE ANTIBODIES 8 IU/mL (<9)
== END 2021-01-10 14:39 | disposition home or self-care (01) ==
LOC: LAB 14:38
PROVIDERS: ATTEND Internal Medicine Endocrinology, Diabetes & Metabolism
DX: C73 Malignant neoplasm of thyroid gland (principal); E89.0 Postprocedural hypothyroidism
CPT/HCPCS: 36415; 84443; 86376; 86800

== ENCOUNTER 2021-01-13 14:38 | Outpatient (CLI) | payer MEDICAID | END 2021-01-13 14:39 | disposition home or self-care (01) | LOC: LAB 14:38 | PROVIDERS: ATTEND Psychiatry & Neurology Neurology | DX: Z51.81 Encounter for therapeutic drug level monitoring (principal); Z79.899 Other long term (current) drug therapy | CPT/HCPCS: 80177 ==

== ENCOUNTER 2021-03-19 13:00 | Outpatient (CLI) | payer MEDICAID ==
[2021-03-19 18:09] LABS: BASOPHILS % (AUTO) 0.4 %; EOSINOPHILS # (AUTO) 0.1 10^3/uL (0.0-0.7); EOSINOPHILS % (AUTO) 1.7 %; HCT - HEMATOCRIT 45.4 % (37.0-47.0); HGB - HEMOGLOBIN 14.5 g/dL (12.0-16.0); LYMPHOCYTES # (AUTO) 2.8 10^3/uL (1.5-3.5); LYMPHOCYTES % (AUTO) 35.2 %; MEAN CORPUSCULAR HEMOGLOBIN 30.6 pg (27.0-31.0); MEAN CORPUSCULAR HGB CONC 31.9 g/dL (32.0-36.0); MEAN CORPUSCULAR VOLUME 95.8 fL (81.0-99.0); MEAN PLATELET VOLUME 10.5 fL (7.9-10.8); MONOCYTES # (AUTO) 0.6 10^3/uL (0.0-1.0); MONOCYTES % (AUTO) 7.4 %; NEUTROPHILS # (AUTO) 4.3 10^3/uL (1.5-6.6); PLT - PLATELET COUNT 277 10^3/uL (130-450); RED BLOOD COUNT 4.74 10^6/uL (4.20-5.40); RED CELL DISTRIBUTION WIDTH 12.9 % (12.0-15.0); WHITE BLOOD COUNT 7.8 x10^3/uL (4.8-10.8)
[2021-03-19 18:28] LABS: ALBUMIN 4.6 g/dL (3.2-5.5); ALBUMIN/GLOBULIN RATIO 1.4 (1.0-2.2); ALKALINE PHOSPHATASE 71 IU/L (42-121); ALT ALANINE AMINOTRANSFERASE 25 IU/L (10-60); AST ASPARTATE AMINOTRANSFERASE 17 IU/L (10-42); BILIRUBIN,TOTAL 0.8 mg/dL (0.2-1.0); BUN - BLOOD UREA NITROGEN 11 mg/dL (6-20); CARBON DIOXIDE - CO2 25 mmol/L (21-32); CHLORIDE 107 mmol/L (101-111); CHOL/HDL RATIO 4.4 (<4.4); CHOLESTEROL 209 mg/dL; CREATININE 0.7 mg/dL (0.4-1.0); GFR - MDRD 96 (>89); GLUCOSE 103 mg/dL (70-100); HDL CHOLESTEROL 48 mg/dL; LDL CHOLESTEROL,CALCULATED 110 mg/dL; LDL/HDL RATIO 2.3 (<4.4); POTASSIUM 4.4 mmol/L (3.5-5.0); SODIUM 141 mmol/L (135-145); TOTAL PROTEIN 7.9 g/dL (6.7-8.2); TRIGLYCERIDES 253 mg/dL; VLDL CHOLESTEROL 51 mg/dL
[2021-03-19 18:47] LABS: CREATININE,URINE 465.2 mg/dL; MICROALBUMIN,URINE 1.4 mg/dL (0-300.0)
[2021-03-19 18:56] LABS: THYROID STIMULATING HORMONE 0.29 uIU/mL (0.34-5.60)
[2021-03-19 19:59] LABS: FREE T4 (FREE THYROXINE) 1.38 ng/dL (0.58-1.64)
[2021-03-19 20:41] LABS: ESTIMATED AVERAGE GLUCOSE 103 mg/dL (70-100); HEMOGLOBIN A1c% 5.2 % (4.27-6.07)
== END 2021-03-19 23:59 | disposition home or self-care (01) ==
LOC: LAB.WCP 13:00
PROVIDERS: ATTEND Family Medicine
DX: E11.9 Type 2 diabetes mellitus without complications (principal)
CPT/HCPCS: 36415; 80053; 80061; 82043; 82570; 83036; 83721; 84439; 84443; 85025

== ENCOUNTER 2022-07-30 09:49 | Outpatient (CLI) | payer MEDICAID ==
[2022-07-30 10:36] LABS: THYROID STIMULATING HORMONE 0.19 uIU/mL (0.34-5.60)
[2022-07-30 10:38] LABS: FREE T4 (FREE THYROXINE) 1.48 ng/dL (0.58-1.64)
[2022-07-31 21:07] LABS: THYROGLOBULIN ANTIBODY <1.0 IU/mL (0.0-0.9); THYROGLOBULIN BY IMA <0.1 ng/mL (1.5-38.5)
== END 2022-07-30 09:50 | disposition home or self-care (01) ==
LOC: LAB 09:49
PROVIDERS: ATTEND Student in an Organized Health Care Education/Training Program
DX: E05.90 Thyrotoxicosis, unspecified without thyrotoxic crisis or storm (principal)
CPT/HCPCS: 36415; 84439; 84443; 86800

== ENCOUNTER 2022-11-20 11:10 | Outpatient (CLI) | payer MEDICAID ==
[2022-11-20 11:26] LABS: BASOPHILS % (AUTO) 0.3 %; EOSINOPHILS # (AUTO) 0.1 10^3/uL (0.0-0.7); EOSINOPHILS % (AUTO) 1.3 %; HCT - HEMATOCRIT 42.7 % (37.0-47.0); HGB - HEMOGLOBIN 14.3 g/dL (12.0-16.0); LYMPHOCYTES # (AUTO) 2.3 10^3/uL (1.5-3.5); LYMPHOCYTES % (AUTO) 35.9 %; MEAN CORPUSCULAR HEMOGLOBIN 31.1 pg (27.0-31.0); MEAN CORPUSCULAR HGB CONC 33.5 g/dL (32.0-36.0); MEAN CORPUSCULAR VOLUME 92.8 fL (81.0-99.0); MEAN PLATELET VOLUME 9.7 fL (7.9-10.8); MONOCYTES # (AUTO) 0.5 10^3/uL (0.0-1.0); MONOCYTES % (AUTO) 7.8 %; NEUTROPHILS # (AUTO) 3.5 10^3/uL (1.5-6.6); NEUTROPHILS % (AUTO) 54.5 %; PLT - PLATELET COUNT 245 10^3/uL (130-450); RED CELL DISTRIBUTION WIDTH 12.2 % (12.0-15.0); WHITE BLOOD COUNT 6.4 x10^3/uL (4.8-10.8)
[2022-11-20 12:01] LABS: ESTIMATED AVERAGE GLUCOSE 97 mg/dL (70-100)
[2022-11-20 13:59] LABS: ALBUMIN 4.4 g/dL (3.2-5.5); ALBUMIN/GLOBULIN RATIO 1.3 (1.0-2.2); BILIRUBIN,TOTAL 0.7 mg/dL (0.2-1.0); CALCIUM 8.8 mg/dL (8.5-10.3); CREATININE 0.7 mg/dL (0.4-1.0); POTASSIUM 4.4 mmol/L (3.5-5.0); TOTAL PROTEIN 7.8 g/dL (6.7-8.2)
[2022-11-20 14:28] LABS: CHOL/HDL RATIO 4.7 (<4.4); CHOLESTEROL 199 mg/dL; HDL CHOLESTEROL 42 mg/dL; LDL CHOLESTEROL,CALCULATED 131 mg/dL; LDL/HDL RATIO 3.1 (<4.4); TRIGLYCERIDES 131 mg/dL; VLDL CHOLESTEROL 26 mg/dL
== END 2022-11-20 11:11 | disposition home or self-care (01) ==
LOC: LAB 11:10
PROVIDERS: ATTEND Nurse Practitioner Family
DX: E11.9 Type 2 diabetes mellitus without complications (principal); Z79.899 Other long term (current) drug therapy
CPT/HCPCS: 36415; 80053; 80061; 83036; 83721; 85025

== ENCOUNTER 2022-12-08 21:22 | Emergency (ER) | payer MEDICAID ==
--- NOTE | 2022-12-08 23:31 | ED Physician Documentation ---
PD HPI HEENT - Stated complaint Stated Complaint: C+ FEVER/THROAT PX - Chief complaint Chief Complaint: Fever - History obtained from History obtained from: Patient - Additional information Additional information: HPI from patient. Patient had (+) home COVID test yesterday. She has 1-2 days of dyspnea, nonproductive cough, nausea without vomiting. Also notes bilateral ear pain, sore throat, and generalized headache and myalgias. She is not COVID vaccinated. PMHx includes asthma, although has not had to use asthma-related medication (such as MDI) for at least a year. Review of Systems Constitutional: reports: Chills, Myalgias, Fatigue, Sweats Ears: reports: Ear pain Throat: reports: Sore throat Cardiac: denies: Chest pain / pressure Respiratory: reports: Dyspnea, Cough. denies: Hemoptysis GI: reports: Nausea. 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 : None HEENT: None Psych: Depression, Anxiety Musculoskeletal: None Derm: None - Past Surgical History Past Surgical History: Yes /PROGRAMMING SPECIALIST: section Neuro: Other HEENT: Other - Present Medications Home Medications: Ambulatory Orders Medication Instructions Recorded Confirmed Levetiracetam [Keppra] 500 mg PO BID 07/07/13 06/04/20 Lorazepam [Ativan] 1 mg PO TID PRN #12 tablet 07/07/13 06/04/20 Levothyroxine Sodium [Synthroid] 112 mcg PO DAILY 07/30/13 06/04/20 Cholecalciferol [Vitamin D3] 50,000 units PO DAILY 06/04/20 06/04/20 Escitalopram Oxalate [Lexapro] 10 mg PO DAILY 06/04/20 06/04/20 Propranolol [Inderal] 80 mg PO QPM 06/04/20 06/04/20 metFORMIN [Glucophage] 500 mg PO ONCE 06/04/20 06/04/20 Ondansetron Odt [Zofran] 4 mg TL Q6H PRN #14 tablet 12/09/22 predniSONE [Deltasone] 40 mg PO DAILY 3 Days #6 tablet 12/09/22 traMADol [Ultram] 50 - 100 mg PO Q6H PRN #14 tablet 12/09/22 - Allergies Allergies/Adverse Reactions: Allergies Allergy/AdvReac Type Severity Reaction Status Date / Time codeine Allergy Respiratory Verified 10/19/20 17:48 hydrocodone Allergy Rash Verified 10/19/20 17:48 oxycodone Allergy Rash Verified 10/19/20 17:48 phenytoin sodium * Allergy Rash Verified 10/19/20 17:48 [From Dilantin] phenytoin sodium extended * Allergy Rash Verified 10/19/20 17:48 [From Dilantin] - Social History Does the pt smoke?: Yes Smoking Status: Current every day smoker Does the pt drink ETOH?: Yes Does the pt have substance abuse?: No - Immunizations Immunizations are current?: No Immunizations: TDAP >10years/unknown - POLST Patient has POLST: No PD ED PE NORMAL - Vitals Vital signs reviewed: Yes - General General: Alert and oriented X 3, No acute distress, Well developed/nourished - HEENT HEENT: Ears normal ( ), Moist mucous membranes, Pharynx benign - Neck Neck: Supple, no meningeal sign - Cardiac Cardiac: RRR, No murmur - Respiratory Respiratory: No respiratory distress - Abdomen Abdomen: Soft, Non tender - Extremities Extremities: No edema PD ED PE EXPANDED - Respiratory Respiratory: Wheezing (bilateral expiratory wheezing with course inspiratory and expiratory breath sounds throughout) Results - Vitals Vitals: Oxygen O2 Source Room air PD Medical Decision Making - ED course Complexity details: reviewed results, re-evaluated patient, considered differential, d/w patient ED course: Recent (yesterday) positive home COVID test, presents with signs/symptoms c/w COVID illness, particularly in setting of pmhx of asthma. She is given duoneb and 10mg Decadron with significant improvement , both by patient reports as well as reexamination (lung auscultation, with residual trace end-expiratory wheeze, resolution of course breath sounds). Radiologist notes "indistinct" RUL abnormalities possibly representing atypical pneumonia. At this time, I do not think that antibiotics are indicated. The xray findings are very subtle, lungs are without focal adventitious breath sounds, pulse ox is 96-98% on room air, and source of infection is most likely COVID; would consider super-infection (superimposed bacterial) but , given these factors, risks of an antibiotic (cost, side effect, potential for allergic reaction) outweighs benefits at this time. Considering this, return precautions were carefully reviewed with patient, encouraged to return if worse in any way. She is given Paxlovid kit (pmh of asthma puts her at risk of complications of COVID, as does her BMI. Seizure history also considered). I am e-prescribing prednisone, tramadol, and zofran. Although patient has not used albuterol MDI for at least the past year, she says she has a new albuterol MDI at home and thus does not need this rx. The tramadol is being prescribed for her headache and generalized myalgias. She says she cannot take hydrocodone nor oxycodone due to adverse reactions/side effects, but has had tramadol in the past without such problems. I am prescribing a short course of short-acting opioid pain medication for this patient. 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 I have discussed that the opioids are for short term therapy only, and will not be refilled from the ED. Departure - Departure Disposition: 01 Home, Self Care Clinical Impression: COVID-19 Condition: Good Instructions: ED Viral Syndrome Follow-Up: Sophie Sauceda ARNP [Primary Care Provider] - Prescriptions: predniSONE [Deltasone] 40 mg PO DAILY 3 Days #6 tablet traMADol [Ultram] 50 - 100 mg PO Q6H PRN #14 tablet PRN Reason: Pain 5-7 Ondansetron Odt [Zofran] 4 mg TL Q6H PRN #14 tablet PRN Reason: Nausea / Vomiting Comments: Take the antiviral medications (Paxlovid) as per the instructions on the box that was provided to you during your ER stay. I have electronically submitted prescriptions for tramadol (pain medication), on dansetron (antinausea medication), and prednisone (steroid) to the [facility] pharmacy in [place]. You can take Tylenol or ibuprofen in addition to the tramadol. I recommend that you go to the [facility] website where there is a calculator that you can use to determine when you can and isolation/quarantine for your COVID. I am prescribing a short course of narcotic pain medication for you. These are potentially dangerous and addictive medications that should be used carefully. These medications may constipate you. Take an [id number]-nilalcs stool softener (docusate) twice daily with plenty of water while taking these medications. If you go 24 hours without a bowel movement, take [id number] miralax, per package instructions. Do not drink or drive while taking these medications. If you received narcotic or sedating medications while in the emergency department, do not drive for 24 hours. Store this medication in a safe, secure place and out of reach of children. It is a violation of federal law to give or sell this medication to another person or to use in a manner other than prescribed. The ED will not refill narcotic prescriptions, including prescriptions lost or stolen. To dispose of unwanted medications: 1. [facility] [address] in [place] has a medication drop box. They accept prescription medications (in pill form) Wednesday through Wednesday 9:00 a.m. to 5:00 p.m. 2. The [facility] [employer] accepts prescription medications (in pill form only) for disposal year round. Call for more information. 3. Contact the [facility] for the next [facility] sponsored prescription drug collection event. , [phone], or [phone]; Discharge Date/Time: 12/09/22 02:51
[2022-12-09] MEDS ORDERED: IPRATROPIUM/ALBUTEROL 3 ML NEB INH STA (00:11)
[2022-12-09] MEDS ORDERED: NIRMATRELVIR/RITONAVIR PREPACK PO STA (00:11)
[2022-12-09] MEDS ORDERED: CHERRY SYRUP 10 ML UDC PO ONE (00:12)
[2022-12-09] MEDS ORDERED: ONDANSETRON ODT 4 MG TABLET TL STA (00:12)
[2022-12-09] MEDS: DEXAMETHASONE 10 MG/ML VIAL PO STA (00:33)
--- NOTE | 2022-12-09 01:04 | XRAY Report ---
PROCEDURE: Chest 1 View X-Ray INDICATIONS: dysnea, cough, COVID POSITIVE TECHNIQUE: One view of the chest was acquired. COMPARISON: Chest x-ray 10/19/2020. FINDINGS: Surgical changes and devices: None. Lungs and pleura: There are a few indistinct right suprahilar opacities. No pleural effusions or pne umothorax. Mediastinum: Mediastinal contours appear normal. Heart size is normal. Bones and chest wall: No suspicious bony lesions. Overlying soft tissues appear unremarkable. IMPRESSION: 1. Indistinct right suprahilar opacities are nonspecific but may reflect atypical pneumonia. Reviewed by: Emiliano Andino MD on 12/09/2022 1:02 AM PDT Approved by: Emiliano Andino MD on 12/09/2022 1:02 AM PDT Station ID: [id number]
[2022-12-09] MEDS ORDERED: traMADol 50 MG TABLET PO STA (02:23)
[2022-12-09 02:50] VITALS: BP 102/71
== END 2022-12-09 02:51 | disposition home or self-care (01) ==
LOC: ED 21:22
DX: U07.1 COVID-19 (principal); J45.909 Unspecified asthma, uncomplicated; Z68.28 Body mass index [BMI] 28.0-28.9, adult; Z86.69 Personal history of other diseases of the nervous system and sense organs; F17.200 Nicotine dependence, unspecified, uncomplicated; Z28.310 Unvaccinated for COVID-19
CPT/HCPCS: 71045; 94640; 99283; 99284; A9270; J3490; Q0162

== ENCOUNTER 2022-12-22 17:15 | Outpatient (CLI) | payer MEDICAID ==
[2022-12-22] MEDS ORDERED: iohexoL-300 100 ML VIAL ONE (17:43)
--- NOTE | 2022-12-23 10:04 | XRAY Report ---
PROCEDURE: Lumbar Spine 2 View INDICATIONS: LUMBAGO TECHNIQUE: 2 views of the lumbar spine were acquired. COMPARISON: None. FINDINGS: Bones: 5 egc-bjs-fhaccey vertebrae are present. There is normal bony alignment. No vertebral body compression fractures. No suspicious bony lesions. Multilevel facet hypertrophy is most prominent a t the L5-S1 level. Minimal disc space narrowing. Soft tissues: Overlying bowel gas pattern is normal. No suspicious soft tissue calcifications. IMPRESSION: Mild multilevel spondylosis. Consider MRI of the lumbar spine for further evaluation if indicated clinically. Reviewed by: Ryan De Leon MD on 12/23/2022 10:03 AM PDT Approved by: Ryan De Leon MD on 12/23/2022 10:03 AM PDT Station ID: [id number]
== END 2022-12-22 17:16 | disposition home or self-care (01) ==
LOC: DI 17:15
PROVIDERS: ATTEND Nurse Practitioner Family
DX: M47.816 Spondylosis without myelopathy or radiculopathy, lumbar region (principal)

== ENCOUNTER 2022-12-22 17:17 | Outpatient (CLI) | payer MEDICAID ==
[2022-12-22] MEDS ORDERED: iohexoL-300 100 ML VIAL IVP ONE (20:52)
--- NOTE | 2022-12-24 14:18 | CT Report ---
PROCEDURE: CT neck with contrast INDICATIONS: THYROID CANCER CONTRAST: 100mL Omni 300 TECHNIQUE: After the administration of intravenous contrast, 3.0 mm axial sections acquired from the sella to th e aortic arch. 3 mm thick coronal reformats were generated. For radiation dose reduction, the follo wing was used: automated exposure control, adjustment of mA and/or kV according to patient size. COMPARISON: CT brain 12/03/2016 FINDINGS: Image quality: Excellent. Lymph nodes: Small scattered deep cervical lymph nodes all of a normal appearance. No evidence of eboni nopathy. Vessels: Visualized vasculature appears patent. Neck spaces: The oropharynx, nasopharynx, and pharynx demonstrate no mucosal lesions. The vocal cor ds, false vocal cords, pyriform sinuses, epiglottis, vallecula, and tongue base all appear normal. E xtramucosal spaces appear unremarkable. Glands: The parotid and submandibular glands appear normal. No thyroid tissue identified Miscellaneous: Left parietal arachnoid cyst remains unchanged. Lung apices appear clear. Superficia l soft tissues appear normal. Bones: No suspicious bony lesions. Visualized sinuses and mastoids appear unremarkable. IMPRESSION: 1. No thyroid tissue present, presumed thyroid ablation. No recurrent or residual mass lesion. 2. No evidence of cervical adenopathy. Reviewed by: Arsenio Silva MD on 12/24/2022 1:16 PM [facility] Approved by: Arsenio Silva MD on 12/24/2022 1:16 PM [facility] Station ID: [id number]
== END 2022-12-22 17:18 | disposition home or self-care (01) ==
LOC: DI 17:17
PROVIDERS: ATTEND Student in an Organized Health Care Education/Training Program
DX: Z85.850 Personal history of malignant neoplasm of thyroid (principal); M47.816 Spondylosis without myelopathy or radiculopathy, lumbar region
CPT/HCPCS: 70491; 72100; Q9967

== ENCOUNTER 2023-02-06 17:26 | Emergency (ER) | payer MEDICAID ==
[2023-02-06] MEDS ORDERED: HYDROmorphone 1 MG/ML CARPUJECT IM STA (18:04)
[2023-02-06] MEDS ORDERED: HYDROmorphone 1 MG/ML CARPUJECT IVP STA (18:04)
--- NOTE | 2023-02-06 18:04 | ED Physician Documentation ---
PD HPI BACK PAIN - Stated complaint Stated Complaint: LOWER BACK PX - Chief complaint Chief Complaint: Back Pain - History obtained from History obtained from: Patient - Additional information Additional information: She has had back pain for the last 4 months. Slowly worsening. There was no specific injury. It is worse with position changes. It is also worse if she lifts either leg up. She denies saddle anesthesia, incontinence, fever, weakness, numbness, tingling in the legs. PD PAST MEDICAL HISTORY - Past Medical History Past Medical History: Yes Cardiovascular: Arrhythmia Respiratory: Asthma Neuro: None, Migraines, Seizure disorder Endocrine/Autoimmune: Type 2 diabetes GI: GERD, Hiatal hernia PUBLIC RELATIONS ASSISTANT: None : None HEENT: None Psych: Depression, Anxiety Musculoskeletal: Chronic back pain Derm: None Other Past Medical History: RLS - Past Surgical History Past Surgical History: Yes General: Hiatal hernia repair /PUBLIC RELATIONS ASSISTANT: section Neuro: Other HEENT: Other - Present Medications Home Medications: Ambulatory Orders Medication Instructions Recorded Confirmed Levothyroxine Sodium [Synthroid] 112 mcg PO DAILY 07/30/13 02/06/23 Cholecalciferol [Vitamin D3] 50,000 units PO Q7D 06/04/20 02/06/23 Escitalopram Oxalate [Lexapro] 10 mg PO DAILY 06/04/20 02/06/23 Propranolol [Inderal] 80 mg PO QPM 06/04/20 02/06/23 metFORMIN [Glucophage] 500 mg PO DAILY 06/04/20 02/06/23 Albuterol Sulf [Ventolin Hfa 1 - 2 puffs INH Q4HR PRN 02/06/23 02/06/23 Inhaler] Buspirone HCl 10 mg ORAL BID 02/06/23 02/06/23 Cyclobenzaprine [Flexeril] 10 mg PO TID PRN #20 tablet 02/06/23 Gabapentin [Neurontin] 600 mg PO DAILY PM 02/06/23 02/06/23 Levetiracetam [Keppra Xr] 750 mg PO BID 02/06/23 02/06/23 Liothyronine [Cytomel] 5 mcg PO QDAC 02/06/23 02/06/23 hydrOXYzine pamoate [Hydroxyzine 25 mg PO PRN PRN 02/06/23 02/06/23 Pamoate] predniSONE [Deltasone] 20 mg PO [id number] #21 tab 02/06/23 traMADol [Ultram] 50 mg PO Q4-6H PRN #15 tablet 02/06/23 - Allergies Allergies/Adverse Reactions: Allergies Allergy/AdvReac Type Severity Reaction Status Date / Time codeine Allergy Respiratory Verified 02/06/23 17:28 hydrocodone Allergy Rash Verified 02/06/23 17:28 oxycodone Allergy Rash Verified 02/06/23 17:28 phenytoin sodium * Allergy Rash Verified 02/06/23 17:28 [From Dilantin] phenytoin sodium extended * Allergy Rash Verified 02/06/23 17:28 [From Dilantin] - Social History Does the pt smoke?: Yes Smoking Status: Current every day smoker Does the pt drink ETOH?: No Does the pt have substance abuse?: No - Immunizations Immunizations are current?: No Immunizations: TDAP >10years/unknown - POLST Patient has POLST: No PD ED PE NORMAL - Vitals Vital signs reviewed: Yes - General General: Alert and oriented X 3, No acute distress - Back Back: No spinal TTP, Other (Mild tenderness of both SI joints, uncomfortable with position changes) - Extremities Extremities: Other (The patient has equal and normal Achilles and patellar refle xes bilaterally. Normal sensation in all areas of the legs. Patient denies saddle anesthesia. Normal strength in flexion-extension at the ankles, knees, and flexion of the hips.) Results - Vitals Vitals: Vital Signs - 24 hr 02/06/23 17:28 Temperature 36.5 C Heart Rate 84 Respiratory 16 Rate Blood Pressure 118/84 H O2 Saturation 96 Oxygen O2 Source Room air PD Medical Decision Making - ED course ED course: No emergency medical condition such as cauda equina, spinal epidural abscess etc. That said probably needs imaging from her primary care physician given the length of time this has been going on. Departure - Departure Disposition: 01 Home, Self Care Clinical Impression: Back pain Condition: Good Record reviewed to determine appropriate education?: Yes Instructions: ED Neck Back Pain General Prescriptions: predniSONE [Deltasone] 20 mg PO [id number] #21 tab Cyclobenzaprine [Flexeril] 10 mg PO TID PRN #20 tablet PRN Reason: Spasms traMADol [Ultram] 50 mg PO Q4-6H PRN #15 tablet PRN Reason: pain Comments: You were seen today for now chronic back pain. Follow-up with your primary care physician for consideration of physical therapy and/or MRI. Return for new or worsening symptoms. Do not drink or drive today given the medications we gave you here. I sent the prescriptions electronically to the [facility] in [place]. I am prescribing a short course of narcotic pain medication for you. These are potentially dangerous and addictive medications that should be used carefully. These medications may constipate you. Take an hqgx-jda-qnkcjvd stool softener (docusate) twice daily with plenty of water while taking these medications. If you go 24 hours without a bowel movement, take rmbi-vaw-wtehpct miralax, per package instructions. Do not drink or drive while taking these medications. If you received narcotic or sedating medications while in the emergency department, do not drive for 24 hours. Store this medication in a safe, secure place and out of reach of children. It is a violation of federal law to give or sell this medication to another person or to use in a manner other than prescribed. The ED will not refill narcotic prescriptions, including prescriptions lost or stolen. To dispose of unwanted medications: 1. [facility] provides a drop box for medication in pill form only (no liquids) 8:00 am to 4:30 p.m. Wednesday-Wednesday in the lobby of the [facility], [address] [place] [address]. Empty pills into ziplock bag before disposal. Call [phone] for information. 2.[employer] is a free service available to all [facility] residents. Go to [email or web address] Note that many narcotic pain relievers also contain Tylenol/acetaminophen. Please ensure that your total dose of acetaminophen from all sources does not exceed 3 g (3000 mg) per day.
[2023-02-06] MEDS ORDERED: KETOROLAC 60 MG/2 ML VIAL IM STA (18:05)
[2023-02-06] MEDS ORDERED: DEXAMETHASONE 10 MG/ML VIAL IM STA (18:05)
[2023-02-06 18:22] VITALS: BP 108/90; O2SAT 98
== END 2023-02-06 19:05 | disposition home or self-care (01) ==
LOC: ED 17:26
DX: M54.50 Low back pain, unspecified (principal); E11.9 Type 2 diabetes mellitus without complications; Z79.84 Long term (current) use of oral hypoglycemic drugs
CPT/HCPCS: 96372; 99283; J1170

== ENCOUNTER 2023-02-10 10:16 | Outpatient (CLI) | payer MEDICAID ==
--- NOTE | 2023-02-10 11:39 | XRAY Report ---
PROCEDURE: Sacrum/Coccyx INDICATIONS: COCCYGEAL PAIN TECHNIQUE: 4 views of the sacrum and coccyx acquired. COMPARISON: Lumbar spine x-ray 12/22/2022 FINDINGS: Bones: Significant overlying bowel gas limits evaluation on AP views. No fractures or dislocations. No suspicious bony lesions. Soft tissues: Visualized bowel gas pattern is normal. No suspicious soft tissue densities. IMPRESSION: Significant overlying bowel gas on AP views limits evaluation. No abnormality is seen on the lateral views. Reviewed by: Nicolás Reyes MD on 02/10/2023 11:37 AM PDT Approved by: Nicolás Reyes MD on 02/10/2023 11:37 AM PDT Station ID: [id number]
== END 2023-02-10 10:17 | disposition home or self-care (01) ==
LOC: DI 10:16
PROVIDERS: ATTEND Family Medicine
DX: M53.3 Sacrococcygeal disorders, not elsewhere classified (principal)

== ENCOUNTER 2023-02-12 10:09 | Outpatient (CLI) | payer MEDICAID ==
[2023-02-12 10:49] LABS: THYROID STIMULATING HORMONE 0.1 uIU/mL (0.34-5.60)
== END 2023-02-12 10:10 | disposition home or self-care (01) ==
LOC: LAB 10:09
PROVIDERS: ATTEND Student in an Organized Health Care Education/Training Program
DX: E89.0 Postprocedural hypothyroidism (principal)
CPT/HCPCS: 36415; 84439; 84443

== ENCOUNTER 2023-03-02 06:24 | Outpatient (CLI) | payer MEDICAID ==
--- NOTE | 2023-03-02 15:34 | MRI Report ---
PROCEDURE: LUMBAR SPINE WO INDICATIONS: BACK PAIN TECHNIQUE: Noncontrast sagittal T1 spin echo and T2 fast echo, sagittal STIR, axial T1 and T2 fast spin echo thr ough the lumbar spine. In cases with scoliosis, additional coronal T2 fast spin echo may be performe d. COMPARISON: None. FINDINGS: Image quality: Excellent. Alignment and Curvature: 5 lumbar type vertebral bodies are present by plain film. There is normal b rashmi alignment. Bone Marrow: Marrow is of normal overall signal. No acute vertebral body compression fractures. Mi ld reactive signal throughout the endplates of the lumbar lower thoracic spine. Spinal Cord: Conus medullaris terminates at the mid L2 level. Visualized cord demonstrates normal s ignal and size. Paraspinous Soft Tissues: No paravertebral masses. T12-L1: Mild disc height loss and desiccation. Mild diffuse disc bulge. No significant canal nor for aminal stenosis. L1-L2: Mild facet and ligament flavum hypertrophy. No significant canal nor foraminal stenosis. L2-L3: Mild facet and ligament flavum hypertrophy. Mild epidural lipomatosis. Mild canal stenosis. Mild bilateral foraminal stenosis. L3-L4: Mild facet and ligament flavum hypertrophy. Mild epidural lipomatosis. Mild canal stenosis. Mild bilateral foraminal stenosis. L4-L5: Mild disc desiccation and diffuse disc bulge. Mild facet and ligament flavum hypertrophy. Mi ld canal stenosis. Mild bilateral foraminal stenosis. L5-S1: Mild disc desiccation and diffuse disc bulge. Mild bilateral facet hypertrophy. Mild canal s tenosis. Moderate bilateral foraminal stenosis. IMPRESSION: 1. Multilevel degenerative disc and facet disease, in addition to epidural lipomatosis and ligamentum flavum hypertrophy. 2. Mild multilevel canal stenoses. 3. Multilevel foraminal stenoses, worst at L5-S1 where there are moderate foraminal stenoses. Reviewed by: Yovany Santiago MD on 03/02/2023 3:33 PM PDT Approved by: Yovany Santiago MD on 03/02/2023 3:33 PM PDT Station ID: [id number]
== END 2023-03-02 06:25 | disposition home or self-care (01) ==
LOC: DI 06:24
PROVIDERS: ATTEND Family Medicine
DX: M47.816 Spondylosis without myelopathy or radiculopathy, lumbar region (principal); M47.817 Spondylosis without myelopathy or radiculopathy, lumbosacral region; M51.36 Other intervertebral disc degeneration, lumbar region; M48.061 Spinal stenosis, lumbar region without neurogenic claudication; M51.37 Other intervertebral disc degeneration, lumbosacral region; M48.07 Spinal stenosis, lumbosacral region

== ENCOUNTER 2023-06-15 10:49 | Outpatient (CLI) | payer MEDICAID ==
--- NOTE | 2023-06-15 19:39 | XRAY Report ---
PROCEDURE: Chest 2 View X-Ray INDICATIONS: ABNOMAL CHEST RADIOGRAPH, REACTIVE AIRWAY DISEASE TECHNIQUE: 2 views of the chest were obtained. COMPARISON: None. FINDINGS: Surgical changes and devices: None. Lungs and pleura: No pleural effusions or pneumothorax. Lungs are clear. Mediastinum: Mediastinal contours appear normal. Heart size is normal. Bones and chest wall: No suspicious bony lesions. Overlying soft tissues appear unremarkable. IMPRESSION: Normal two-view chest x-ray Reviewed by: Arsenio Silva MD on 06/15/2023 6:38 PM [facility] Approved by: Arsenio Silva MD on 06/15/2023 6:38 PM [facility] Station ID: [id number]
== END 2023-06-15 10:50 | disposition home or self-care (01) ==
LOC: DI 10:49
PROVIDERS: ATTEND Nurse Practitioner Family
DX: R91.8 Other nonspecific abnormal finding of lung field (principal); J45.909 Unspecified asthma, uncomplicated

== ENCOUNTER 2023-06-24 08:00 | Outpatient (CLI) | payer MEDICAID ==
[2023-06-24 16:18] LABS: BILIRUBIN,URINE NEGATIVE (NEGATIVE); GLUCOSE, URINE (UA) NEGATIVE (NEGATIVE); KETONES,URINE (UA) NEGATIVE (NEGATIVE); LEUKOCYTE ESTERASE, URINE NEGATIVE (NEGATIVE); NITRITE,URINE NEGATIVE (NEGATIVE); OCCULT BLOOD,URINE NEGATIVE (NEGATIVE); PROTEIN,URINE NEGATIVE (NEGATIVE); UROBILINOGEN,URINE 0.2 (NORMAL) E.U./dL (NORMAL)
[2023-06-24 16:21] LABS: CLARITY,URINE CLEAR (CLEAR)
[2023-06-24 16:48] LABS: BACTERIA,URINE Few /HPF (None Seen); RBC,URINE None Seen /HPF (0-5); SQUAMOUS EPITHELIAL CELL,UR FEW Squamous (<= Few); WBC,URINE 0-3 /HPF (0-5)
[2023-06-25 00:19] LABS: CHLAMYDIA TRACHOMATIS DNA NEGATIVE (NEGATIVE); NEISSERIA GONORRHOEAE DNA NEGATIVE (NEGATIVE); TRICHOMONAS VAGINALIS DNA NEGATIVE (NEGATIVE)
== END 2023-06-24 23:59 | disposition home or self-care (01) ==
LOC: LAB.WC 08:00
PROVIDERS: ATTEND Nurse Practitioner
DX: R39.15 Urgency of urination (principal)
CPT/HCPCS: 81001; 87086; 87491; 87591; 87661

== ENCOUNTER 2023-08-19 10:37 | Outpatient (CLI) | payer MEDICAID ==
[2023-08-19 11:28] LABS: THYROID STIMULATING HORMONE 0.25 uIU/mL (0.34-5.60)
--- NOTE | 2023-08-19 16:45 | XRAY Report ---
PROCEDURE: Knee 3V RT INDICATIONS: RIGHT KNEE PAIN TECHNIQUE: 3 views of the knee were acquired. COMPARISON: None. FINDINGS: Bones: No acute fractures or dislocations. No suspicious bony lesions. No significant arthritic c hanges. Soft tissues: No knee joint effusion. No suspicious soft tissue calcifications or masses. IMPRESSION: No acute osseous abnormality. If symptoms persist or there is continued clinical concern, further millie luation with MRI or CT may be helpful. Reviewed by: Ryan De Leon MD on 08/19/2023 4:43 PM PST Approved by: Ryan De Leon MD on 08/19/2023 4:43 PM PST Station ID: [id number]
== END 2023-08-19 10:38 | disposition home or self-care (01) ==
LOC: LAB 10:37
PROVIDERS: ATTEND Student in an Organized Health Care Education/Training Program
DX: E89.0 Postprocedural hypothyroidism (principal); M25.561 Pain in right knee
CPT/HCPCS: 36415; 81599; 84432; 84439; 84443; 86800

== ENCOUNTER 2023-12-09 11:27 | Outpatient (CLI) | payer MEDICAID ==
[2023-12-09 11:47] LABS: BASOPHILS % (AUTO) 0.4 %; EOSINOPHILS # (AUTO) 0.1 10^3/uL (0.0-0.7); HCT - HEMATOCRIT 41.6 % (37.0-47.0); HGB - HEMOGLOBIN 13.6 g/dL (12.0-16.0); LYMPHOCYTES # (AUTO) 2.5 10^3/uL (1.5-3.5); LYMPHOCYTES % (AUTO) 50.4 %; MEAN CORPUSCULAR HEMOGLOBIN 30.2 pg (27.0-31.0); MEAN CORPUSCULAR HGB CONC 32.7 g/dL (32.0-36.0); MEAN CORPUSCULAR VOLUME 92.2 fL (81.0-99.0); MEAN PLATELET VOLUME 9.7 fL (7.9-10.8); MONOCYTES # (AUTO) 0.3 10^3/uL (0.0-1.0); MONOCYTES % (AUTO) 6.8 %; NEUTROPHILS % (AUTO) 41.2 %; PLT - PLATELET COUNT 237 10^3/uL (130-450); RED BLOOD COUNT 4.51 10^6/uL (4.20-5.40); RED CELL DISTRIBUTION WIDTH 12.5 % (12.0-15.0); WHITE BLOOD COUNT 4.9 x10^3/uL (4.8-10.8)
[2023-12-09 12:02] LABS: ALBUMIN 4.5 g/dL (3.2-5.5); ALBUMIN/GLOBULIN RATIO 1.7 (1.0-2.2); ALKALINE PHOSPHATASE 64 IU/L (42-121); ALT ALANINE AMINOTRANSFERASE 11 IU/L (10-60); AST ASPARTATE AMINOTRANSFERASE 12 IU/L (10-42); BILIRUBIN,TOTAL 0.4 mg/dL (0.2-1.0); BUN - BLOOD UREA NITROGEN 10 mg/dL (6-20); CALCIUM 8.5 mg/dL (8.5-10.3); CARBON DIOXIDE - CO2 28 mmol/L (21-32); CHLORIDE 105 mmol/L (101-111); CHOL/HDL RATIO 3.7 (<4.4); CHOLESTEROL 165 mg/dL; CREATININE 0.7 mg/dL (0.6-1.3); GFR - MDRD 95 (>89); GLUCOSE 103 mg/dL (74-104); HDL CHOLESTEROL 45 mg/dL; LDL CHOLESTEROL,CALCULATED 107 mg/dL; LDL/HDL RATIO 2.4 (<4.4); POTASSIUM 4.5 mmol/L (3.5-4.5); SODIUM 136 mmol/L (135-145); TOTAL PROTEIN 7.1 g/dL (6.4-8.9); TRIGLYCERIDES 64 mg/dL (48-352); VLDL CHOLESTEROL 13 mg/dL
[2023-12-09 12:16] LABS: THYROID STIMULATING HORMONE 0.13 uIU/mL (0.34-5.60)
[2023-12-09 21:30] LABS: ESTIMATED AVERAGE GLUCOSE 97 mg/dL (70-100)
== END 2023-12-09 11:28 | disposition home or self-care (01) ==
LOC: LAB 11:27
PROVIDERS: ATTEND Nurse Practitioner Family
DX: Z00.00 Encounter for general adult medical examination without abnormal findings (principal)
CPT/HCPCS: 36415; 80053; 80061; 83036; 83721; 84439; 84443; 85025

== ENCOUNTER 2024-03-13 11:02 | Outpatient (CLI) | payer MEDICAID ==
[2024-03-13 11:42] LABS: THYROID STIMULATING HORMONE 0.07 uIU/mL (0.34-5.60)
== END 2024-03-13 11:03 | disposition home or self-care (01) ==
LOC: LAB 11:02
PROVIDERS: ATTEND Student in an Organized Health Care Education/Training Program
DX: E03.9 Hypothyroidism, unspecified (principal)
CPT/HCPCS: 36415; 84439; 84443